=== PATIENT | male | born 1935 | race African-American/Black ===

== ENCOUNTER 2019-12-11 18:24 | Inpatient (IN) | payer MEDICARE, OTHER ==
[~2019-12-11] VITALS: Ht 172.7 cm; Wt 89.8 kg
[2019-12-11 21:20] LABS: BASOPHILS % 0.2 % (0.0-2.0); EOSINOPHILS % 0.7 % (0.0-5.0); HEMATOCRIT. 33.9 % (42.0-52.0); HEMOGLOBIN. 11.8 g/dL (14.0-18.0); LYMPHOCYTES % 9.8 % (20.0-50.0); MEAN CORPUSCULAR HEMOGLOBIN 33.4 pg (28.0-32.0); MEAN CORPUSCULAR VOLUME 96.1 fL (80.0-94.0); MEAN PLATELET VOLUME 8.4 fl (7.4-10.4); MONOCYTES % 7.6 % (2.0-8.0); NEUTROPHILS % 81.7 % (40.0-76.0); PLATELET 404 x1000/uL (130-400); RED BLOOD CELL COUNT 3.53 mill/uL (4.7-6.1); RED CELL DISTRIBUTION WIDTH 14.5 % (11.6-14.6)
[2019-12-11 21:24] LABS: CHLORIDE 106 mEq/L (98-107)
[2019-12-12 08:00] VITALS: BP 113/50
[2019-12-12] MEDS ORDERED: ACETAMINOPHEN 325MG TABLET PO PRN (10:00)
[2019-12-12] MEDS ORDERED: ACETAMINOPHEN 650MG/20.3ML UDC GT PRN ×2 (10:00)
[2019-12-12] MEDS ORDERED: ACETAMINOPHEN 650MG SUPP PR PRN ×2 (10:00)
[2019-12-12 11:48] LABS: BASOPHILS % 0.1 % (0.0-2.0); EOSINOPHILS % 1.2 % (0.0-5.0); HEMATOCRIT. 31.2 % (42.0-52.0); HEMOGLOBIN. 10.8 g/dL (14.0-18.0); LYMPHOCYTES % 7.3 % (20.0-50.0); MEAN CORPUSCULAR HEMOGLOBIN 33.1 pg (28.0-32.0); MEAN PLATELET VOLUME 8.3 fl (7.4-10.4); NEUTROPHILS % 85.4 % (40.0-76.0); PLATELET 396 x1000/uL (130-400); RED BLOOD CELL COUNT 3.25 mill/uL (4.7-6.1); RED CELL DISTRIBUTION WIDTH 14.5 % (11.6-14.6)
[2019-12-12 11:56] LABS: CHLORIDE 107 mEq/L (98-107)
[2019-12-12] MEDS: AZITHROMYCIN 500 MG in DEXT 5% WATER 250 ML IV SCH (11:56)
[2019-12-12] MEDS: CEFTRIAXONE 1 G PREMIX 50 ML IV SCH (11:56)
[2019-12-12 12:00] VITALS: BP 117/56
[2019-12-12] MEDS ORDERED: DEXTROSE 50% WATER 50ML SYRINGE IV PRN (12:30)
[2019-12-12] MEDS: ENOXAPARIN 100MG/ML SYR SUBCUT SCH (14:36)
[2019-12-12 16:00] VITALS: BP 111/57
[2019-12-12] MEDS ORDERED: METF-516 MT (16:43)
[2019-12-12] MEDS ORDERED: LOSA50TA41 MT (16:45)
[2019-12-12] MEDS: BLOOD SUGAR DIAGNOSTIC STRIP TEST SCH ×2 (16:47→20:13)
[2019-12-12] MEDS: INSULIN LISPRO 100 UNITS/ML SUBCUT SCH ×2 (17:56→21:13)
[2019-12-12 19:22] LABS: D-DIMER 0.53 mg/L FEU (<0.50); PROTHROMBIN TIME 10.6 sec (9.6-11.0)
[2019-12-12 20:00] VITALS: BP 110/56
[2019-12-12] MEDS: GUAIFENESIN 600MG ER TABLET PO SCH (20:45)
[2019-12-13] VITALS: BP 99/50
[2019-12-13 03:04] LABS: COLOR URINE DK YELLOW (YELLOW); KETONES URINE NEGATIVE (NEGATIVE); LEUKOCYTE ESTERASE URINE NEGATIVE (NEGATIVE); NITRITE URINE NEGATIVE (NEGATIVE); OCCULT BLOOD URINE NEGATIVE (NEGATIVE); PROTEIN URINE 1+ (NEGATIVE); SPECIFIC GRAVITY URINE 1.017 (1.005-1.030)
[2019-12-13 03:16] LABS: CLARITY URINE CLEAR (CLEAR)
[2019-12-13 04:00] VITALS: BP 96/53
[2019-12-13] MEDS: BLOOD SUGAR DIAGNOSTIC STRIP TEST SCH ×4 (06:41→20:35)
[2019-12-13] MEDS: INSULIN LISPRO 100 UNITS/ML SUBCUT SCH ×4 (06:58→20:58)
[2019-12-13 07:00] LABS: BASOPHILS % 0.2 % (0.0-2.0); EOSINOPHILS % 1.8 % (0.0-5.0); HEMATOCRIT. 30.7 % (42.0-52.0); HEMOGLOBIN. 10.4 g/dL (14.0-18.0); LYMPHOCYTES % 10.4 % (20.0-50.0); MEAN CORPUSCULAR HEMOGLOBIN 33.7 pg (28.0-32.0); MEAN CORPUSCULAR VOLUME 99.5 fL (80.0-94.0); MEAN PLATELET VOLUME 8.3 fl (7.4-10.4); MONOCYTES % 8.2 % (2.0-8.0); NEUTROPHILS % 79.4 % (40.0-76.0); PLATELET 419 x1000/uL (130-400); RED BLOOD CELL COUNT 3.08 mill/uL (4.7-6.1); RED CELL DISTRIBUTION WIDTH 14.7 % (11.6-14.6)
[2019-12-13 07:10] LABS: CHLORIDE 108 mEq/L (98-107)
[2019-12-13 07:25] LABS: PHOSPHORUS 4.7 mg/dL (2.5-4.9)
[2019-12-13 08:00] VITALS: BP 111/60
[2019-12-13] MEDS: GUAIFENESIN 600MG ER TABLET PO SCH (10:32)
[2019-12-13] MEDS: HYDROXYCHLOROQUINE SULFATE 200MG TABLET PO SCH ×2 (10:32→20:35)
[2019-12-13] MEDS: CEFTRIAXONE 1 G PREMIX 50 ML IV SCH (10:32)
[2019-12-13] MEDS: ZINC SULFATE 220 MG ( 50 ) CAPSULE PO SCH (10:33)
[2019-12-13] MEDS: ASCORBIC ACID 500 MG TABLET PO SCH (10:33)
[2019-12-13] MEDS ORDERED: SODIUM POLYSTYRENE SULFONATE 15 G/60 ML BOT PO SCH (11:00)
[2019-12-13] MEDS: ENOXAPARIN 100MG/ML SYR SUBCUT SCH (12:38)
[2019-12-13] MEDS: AZITHROMYCIN 500 MG in DEXT 5% WATER 250 ML IV SCH (12:38)
[2019-12-13 16:00] VITALS: BP 109/60
[2019-12-13 20:00] VITALS: BP 112/58
[2019-12-14] VITALS (7 sets, daily range): BP systolic 108–127; BP diastolic 50–65
[2019-12-14] MEDS: BLOOD SUGAR DIAGNOSTIC STRIP TEST SCH ×5 (05:58→21:38)
[2019-12-14] MEDS: INSULIN LISPRO 100 UNITS/ML SUBCUT SCH ×5 (06:44→21:43)
[2019-12-14 07:11] LABS: *CREATININE RANDOM URINE 246.4 mg/dL (Not Estab.); MICROALBUMIN RANDOM URINE 86.7 ug/mL (Not Estab.)
[2019-12-14] MEDS: ASCORBIC ACID 500 MG TABLET PO SCH (09:06)
[2019-12-14] MEDS: HYDROXYCHLOROQUINE SULFATE 200MG TABLET PO SCH ×2 (09:06→20:49)
[2019-12-14] MEDS: ZINC SULFATE 220 MG ( 50 ) CAPSULE PO SCH (09:06)
[2019-12-14] MEDS: AZITHROMYCIN 500 MG in DEXT 5% WATER 250 ML IV SCH (10:03)
[2019-12-14] MEDS: CEFTRIAXONE 1 G PREMIX 50 ML IV SCH (11:31)
[2019-12-14] MEDS: ENOXAPARIN 100MG/ML SYR SUBCUT SCH (13:12)
[2019-12-15] VITALS: BP 129/63
[2019-12-15 04:00] VITALS: BP 130/61
[2019-12-15 06:50] LABS: CHLORIDE 110 mEq/L (98-107)
[2019-12-15 06:53] LABS: HEMATOCRIT. 29.3 % (42.0-52.0); HEMOGLOBIN. 10.3 g/dL (14.0-18.0); MEAN CORPUSCULAR HEMOGLOBIN 33.7 pg (28.0-32.0); MEAN CORPUSCULAR VOLUME 95.5 fL (80.0-94.0); MEAN PLATELET VOLUME 7.7 fl (7.4-10.4); PLATELET 569 x1000/uL (130-400); RED BLOOD CELL COUNT 3.07 mill/uL (4.7-6.1); RED CELL DISTRIBUTION WIDTH 14.4 % (11.6-14.6)
[2019-12-15 06:55] LABS: PHOSPHORUS 4.5 mg/dL (2.5-4.9)
[2019-12-15] MEDS: INSULIN LISPRO 100 UNITS/ML SUBCUT SCH ×4 (06:58→21:26)
[2019-12-15] MEDS: BLOOD SUGAR DIAGNOSTIC STRIP TEST SCH ×4 (06:58→21:19)
[2019-12-15 09:37] LABS: ATYPICAL LYMPHOCYTES 1; NUCLEATED RED BLOOD CELLS 1 /100 WBC
[2019-12-15 09:38] LABS: PLATELET ESTIMATE INCREASED
[2019-12-15] MEDS: ASCORBIC ACID 500 MG TABLET PO SCH (10:23)
[2019-12-15] MEDS: ZINC SULFATE 220 MG ( 50 ) CAPSULE PO SCH (10:23)
[2019-12-15] MEDS: HYDROXYCHLOROQUINE SULFATE 200MG TABLET PO SCH ×2 (10:23→21:25)
[2019-12-15 10:31] LABS: BG BASE EXCESS -1.2 mmol/L (-2.0-2.0); BG CARBOXYHEMOGLOBIN 0.3 % (0.5-1.5); BG DEOXYHEMOGLOBIN 2.9 % (0.0-5.0); BG FRACTION INSPIRED OXYGEN 28; BG HCO3 ACT 23.5 mmol/L (22.0-26.0); BG METHEMOGLOBIN 0.3 % (0.0-1.5); BG OXYGEN SATURATION 97.1 % (92.0-98.5); BG OXYHEMOGLOBIN 96.5 % (94.0-97.0); BG PH 7.397 (7.350-7.450); BG PO2 101.2 mmHg (75.0-100.0); BG SAMPLE SITE LEFT RADIAL; BG TOTAL HEMOGLOBIN 11.4 g/dL (12.0-18.0); BG VENT MODE NASAL CANNULA
[2019-12-15 11:10] VITALS: BP 118/59
[2019-12-15 12:11] VITALS: BP 124/60
[2019-12-15] MEDS ORDERED: LIDOCAINE HCL/PF 1% 2ML VIAL ONE (13:43)
[2019-12-15] MEDS: CEFTRIAXONE 1 G PREMIX 50 ML IV SCH (14:10)
[2019-12-15] MEDS: AZITHROMYCIN 500 MG in DEXT 5% WATER 250 ML IV SCH (14:10)
[2019-12-15] MEDS: ENOXAPARIN 100MG/ML SYR SUBCUT SCH (14:11)
[2019-12-15 15:23] LABS: BG CARBOXYHEMOGLOBIN 0.3 % (0.5-1.5); BG DEOXYHEMOGLOBIN 7.2 % (0.0-5.0); BG METHEMOGLOBIN 0.3 % (0.0-1.5); BG OXYGEN SATURATION 92.8 % (92.0-98.5); BG OXYHEMOGLOBIN 92.2 % (94.0-97.0); BG PCO2 33.8 mmHg (35.0-45.0); BG PH 7.411 (7.350-7.450); BG PO2 69.5 mmHg (75.0-100.0); BG SAMPLE SITE RIGHT RADIAL; BG TOTAL HEMOGLOBIN 10.5 g/dL (12.0-18.0); BG VENT MODE ROOM AIR
[2019-12-15 16:04] VITALS: BP 130/59
[2019-12-15] MEDS ORDERED: ALBU90AE INH (16:16)
[2019-12-15] MEDS ORDERED: ZINC220T4 MT (16:16)
[2019-12-15] MEDS ORDERED: ASCO500C18 MT (16:16)
[2019-12-15] MEDS ORDERED: HYDR200T80 MT (16:16)
[2019-12-15 20:00] VITALS: BP 124/59
[2019-12-16] VITALS: BP 129/63
[2019-12-16 04:00] VITALS: BP 123/62
[2019-12-16] MEDS: ENOXAPARIN 100MG/ML SYR SUBCUT SCH ×2 (06:14→12:00)
[2019-12-16 06:50] LABS: HEMATOCRIT. 27.4 % (42.0-52.0); HEMOGLOBIN. 9.7 g/dL (14.0-18.0); MEAN CORPUSCULAR HEMOGLOBIN 33.9 pg (28.0-32.0); MEAN CORPUSCULAR VOLUME 95.8 fL (80.0-94.0); MEAN PLATELET VOLUME 7.8 fl (7.4-10.4); PLATELET 623 x1000/uL (130-400); RED BLOOD CELL COUNT 2.86 mill/uL (4.7-6.1)
[2019-12-16 06:59] LABS: CHLORIDE 110 mEq/L (98-107)
[2019-12-16 07:05] LABS: PHOSPHORUS 3.9 mg/dL (2.5-4.9)
[2019-12-16] MEDS: INSULIN LISPRO 100 UNITS/ML SUBCUT SCH ×2 (07:10→12:10)
[2019-12-16] MEDS: BLOOD SUGAR DIAGNOSTIC STRIP TEST SCH ×2 (07:36→11:40)
[2019-12-16 08:00] VITALS: BP 120/70
[2019-12-16] MEDS: ZINC SULFATE 220 MG ( 50 ) CAPSULE PO SCH (08:58)
[2019-12-16] MEDS: HYDROXYCHLOROQUINE SULFATE 200MG TABLET PO SCH (08:58)
[2019-12-16] MEDS: ASCORBIC ACID 500 MG TABLET PO SCH (08:58)
[2019-12-16] MEDS ORDERED: AZITHROMYCIN 250 MG in DEXT 5% WATER 250 ML IV SCH (09:00)
[2019-12-16] MEDS: CEFTRIAXONE 1 G PREMIX 50 ML IV SCH (11:59)
[2019-12-16 12:00] VITALS: BP 119/65
[2019-12-16 12:51] LABS: PLATELET ESTIMATE INCREASED
[2019-12-16 13:58] VITALS: BP 119/65
== END 2019-12-16 16:00 | disposition home or self-care (01) | DRG 177 ==
LOC: ER 18:24 → 7EST 22:46 → ENRESERV 12-12 07:28 → 7EST 12-14 11:14
PROVIDERS: ADMIT Internal Medicine; ATTEND Internal Medicine
DX: U07.1 COVID-19 (principal); J12.89 Other viral pneumonia; J96.01 Acute respiratory failure with hypoxia; E44.0 Moderate protein-calorie malnutrition; N17.9 Acute kidney failure, unspecified; N39.0 Urinary tract infection, site not specified; J98.11 Atelectasis; D64.9 Anemia, unspecified; E11.22 Type 2 diabetes mellitus with diabetic chronic kidney disease; E66.9 Obesity, unspecified; E87.5 Hyperkalemia; M19.90 Unspecified osteoarthritis, unspecified site; I12.9 Hypertensive chronic kidney disease with stage 1 through stage 4 chronic kidney disease, or unspecified chronic kidney disease; N18.9 Chronic kidney disease, unspecified; D72.810 Lymphocytopenia; R00.1 Bradycardia, unspecified; Z87.891 Personal history of nicotine dependence; Z72.89 Other problems related to lifestyle; Z68.30 Body mass index [BMI] 30.0-30.9, adult; Z79.4 Long term (current) use of insulin
CPT/HCPCS: 36415; 36600; 71045; 80048; 80053; 81003; 82043; 82375; 82570; 82728; 82805; 82962; 83605; 83615; 83735; 83880; 83935; 84100; 84145; 84156; 84300; 84484; 85025; 85379; 86140; 87635; 87804; 93005; 99285; J0456; J0696; J1650; J1815; J3490; J7060

== ENCOUNTER 2021-07-10 19:36 | Emergency (ER) | payer MEDICARE, OTHER ==
[~2021-07-10] VITALS: Ht 177.8 cm; Wt 93.0 kg
[~2021-07-10 19:36] MED LIST: ALBU90AE INH; ASCO500C18 MT; HYDR200T80 MT; ZINC220T4 MT
[2021-07-10 22:30] VITALS: BP 109/71
== END 2021-07-10 22:42 | disposition home or self-care (01) ==
LOC: ER 19:36
DX: I12.9 Hypertensive chronic kidney disease with stage 1 through stage 4 chronic kidney disease, or unspecified chronic kidney disease (principal); E11.22 Type 2 diabetes mellitus with diabetic chronic kidney disease; N18.9 Chronic kidney disease, unspecified
CPT/HCPCS: 36415; 80048; 93005; 99283